=== PATIENT | male | born 1980 ===

== ENCOUNTER 2016-12-29 00:55 | Emergency (ER) | payer BC ==
[2016-12-29 01:29] VITALS: RESP 18
[2016-12-29 01:35] LABS: BASO # 0.1 K/uL (0.0-0.2); BASO % 0.7 % (0.0-2.0); EOS # 0.4 K/uL (0.0-0.7); EOS % 2.6 % (0.0-4.0); HEMATOCRIT 45.4 % (35.0-51.0); LYMPH # 4.7 K/uL (1.0-4.3); MEAN CELL VOLUME 93.1 fL (80.0-94.0); MEAN CORPUSCULAR HEMOGLOBIN 30.9 pg (27.0-31.0); MEAN CORPUSCULAR HGB CONC 33.2 g/dL (33.0-37.0); MONO # 0.9 K/uL (0.0-0.8); MONO % 5.4 % (0.0-10.0); RED CELL DISTRIBUTION WIDTH 14.3 % (11.5-14.5); WHITE BLOOD COUNT 16.3 K/uL (4.8-10.8)
--- NOTE | 2016-12-29 01:44 | C.PDOC ---
History Of Present Illness 36 year old male presents to the ED with complaints of weakness to the left facial area that began to night while brushing his teeth. Patient denies any headache or head injury. Chief Complaint (Nursing): Weakness/Neurological Deficit History Per: Patient History/Exam Limitations: no limitations Onset/Duration Of Symptoms: Hrs Current Symptoms Are (Timing): Still Present Activity At Onset Of Symptoms: Other (brushing teeth ) Recent travel outside of the [place]: No Past Medical History Reviewed: Historical Data, Nursing Documentation, Vital Signs Vital Signs: Last Vital Signs Temp 97.6 F 12/29/16 01:12 Pulse 82 12/29/16 01:12 Resp 18 12/29/16 01:12 BP 135/87 12/29/16 01:12 Pulse Ox 95 12/29/16 01:58 Family History: States: Unknown Family Hx - Social History Hx Alcohol Use: Yes Hx Substance Use: No - Immunization History Hx Tetanus Toxoid Vaccination: No Hx Influenza Vaccination: No Hx Pneumococcal Vaccination: No Review Of Systems Constitutional: Negative for: Fever, Chills, Sweats ENT: Positive for: Other (weakness of the left facial area ) Cardiovascular: Negative for: Chest Pain, Palpitations Respiratory: Negative for: Cough, Shortness of Breath Gastrointestinal: Negative for: Nausea, Vomiting, Abdominal Pain, Diarrhea Neurological: Negative for: Headache Physical Exam - Physical Exam Appears: Non-toxic, No Acute Distress Skin: Warm, Dry Head: No Tenderness, No Swelling, No Abrasion, No Laceration, Other (left facial weakness, inability to completely close left eyelid, and asymetry of the left facial area ) Eye(s): bilateral: Normal Inspection Oral Mucosa: Moist Neck: Supple Chest: Symmetrical, No Deformity Cardiovascular: Rhythm Regular Respiratory: No Rales, No Rhonchi, No Stridor, No Wheezing Gastrointestinal/Abdominal: Soft, No Tenderness, No Distention, No Guarding, No Rebound Extremity: Normal ROM, No Tenderness Neurological/Psych: Oriented x3, Other (No focal defecits ) ED Course And Treatment - Laboratory Results Result Diagrams: 12/29/16 01:32 O2 Sat by Pulse Oximetry: 95 (room air) - CT Scan/US head Other Rad Studies (CT/US): Read By Radiologist (no acute findings) CT/US Interpretation: no acute findings Disposition Counseled Patient/Family Regarding: Diagnosis - Disposition Referrals: [facility] [Outside] Disposition: HOME/ ROUTINE Disposition Time: 01:59 Condition: STABLE Prescriptions: Prednisone [Deltasone] 20 mg PO BIDPC #10 tablet Instructions: Mukherjee Palsy (ED) - POA Present On Arrival: None - Clinical Impression Clinical Impression: Mukherjee's palsy - Scribe Statement The provider has reviewed the documentation as recorded by the Scribe Joya Rosas All medical record entries made by the Scribe were at my direction and personally dictated by me. I have reviewed the chart and agree that the record accurately reflects my personal performance of the history, physical exam, medical decision making, and the department course for this patient. I have also personally directed, reviewed, and agree with the discharge instructions and disposition.
[2016-12-29 01:47] LABS: CHLORIDE 102 mmol/L (98-107)
[2016-12-29 01:48] LABS: POTASSIUM 4.3 mmol/L (3.6-5.2); SODIUM 137 mmol/L (132-148)
[2016-12-29 01:50] LABS: ALB/GLOB RATIO 1.3 (1.0-2.1); ALKALINE PHOSPHATASE 90 U/L (38-126); ALT/SGPT 27 U/L (21-72); AST/SGOT 24 U/L (17-59); BILIRUBIN,TOTAL 0.7 mg/dL (0.2-1.3); BLOOD UREA NITROGEN 11 mg/dL (9-20); CARBON DIOXIDE 25 mmol/L (22-30); GFR AFRICAN-AMERICAN > 60; TOTAL PROTEIN 7.3 g/dL (6.3-8.3)
[2016-12-29 01:51] LABS: CALCIUM 8.8 mg/dl (8.6-10.4); GLUCOSE,RANDOM 95 mg/dL (75-110)
[2016-12-29 02:10] VITALS: BP 114/72; PULSE 73; TEMP 97.5; O2SAT 97
--- NOTE | 2016-12-29 08:16 | CT ---
PROCEDURE: CT HEAD WITHOUT CONTRAST. HISTORY: Headache COMPARISON: None available. TECHNIQUE: Axial computed tomography images were obtained through the head/brain without intravenous contrast. Radiation dose: Total exam DLP = 884 mGy-cm. This CT exam was performed using one or more of the following dose reduction techniques: Automated exposure control, adjustment of the mA and/or kV according to patient size, and/or use of iterative reconstruction technique. FINDINGS: HEMORRHAGE: No intracranial hemorrhage. BRAIN: No mass effect or edema. No atrophy or chronic microvascular ischemic changes. Bilateral basal ganglia calcifications. VENTRICLES: Unremarkable. No hydrocephalus. CALVARIUM: Unremarkable. PARANASAL SINUSES: Unremarkable as visualized. No significant inflammatory changes. MASTOID AIR CELLS: Unremarkable as visualized. No inflammatory changes. OTHER FINDINGS: None. IMPRESSION: No acute intracranial abnormality. If focal neurologic deficit persists, consider MRI. These findings were preliminarily reported at 1:54 a.m. on 12/29/[address] Den Naranjo from [facility].
== END 2016-12-29 02:11 | disposition home or self-care (01) ==
LOC: C.ER 00:55
DX: G51.0 Bell's palsy (principal)